=== PATIENT | female | born 1960 | race Caucasian/White ===

== ENCOUNTER 2016-09-14 16:59 | Emergency (ER) | payer MEDICAID ==
[2016-09-14 17:29] VITALS: BP 144/76
[2016-09-14] MEDS ORDERED: Sodium Chloride 0.9% 2,000 ML IV ONE (17:44)
[2016-09-14] MEDS ORDERED: Sodium Chloride 0.9% 10 ML Syringe FLUSH PRN (17:44)
[2016-09-14] MEDS ORDERED: Ketorolac 30 MG/ML SDV IVPUSH ONE (17:45)
--- NOTE | 2016-09-14 17:49 | EDM.PDOC ---
ED HPI GENERAL MEDICAL PROBLEM - General Chief Complaint: General Stated Complaint: NEEDS FLUIDS? Time Seen by Provider: 09/14/16 17:30 Source of Information: Reports: Patient History Limitations: Reports: No Limitations - History of Present Illness INITIAL COMMENTS - FREE TEXT/NARRATIVE: Johanna is a 56 year old female who presents to the ED today with c/o "feeling dehydrated". 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 Patient does have recent hx of tick borne illness, finished doxycycline at the end of June, had abnormal LFT's after that which have since normalized. She endorses a mild frontal headache, she denies any fever/chills/ vomiting/diarrhea. She denies any visual changes or unilateral weakness. 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 GI Surgical History: Reports: Hernia, Inguinal Female Surgical History: Reports: Tubal Ligation Social & Family History - Tobacco Use Smoking Status *Q: Heavy Tobacco Smoker Years of Tobacco use: 30 Packs/Tins Daily: 0.5 Used Tobacco, but Quit: No Second Hand Smoke Exposure: No - Caffeine Use Caffeine Use: Reports: Soda - Alcohol Use Days Per Week of Alcohol Use: 1 Number of Drinks Per Day: 3 Total Drinks Per Week: 3 - Recreational Drug Use Recreational Drug Use: No ED ROS GENERAL - Review of Systems Review Of Systems: ROS reveals no pertinent complaints other than HPI. ED EXAM, GENERAL - Physical Exam Exam: See Below Exam Limited By: No Limitations General Appearance: Alert, WD/WN, No Apparent Distress, Anxious Eye Exam: Bilateral Eye: EOMI, PERRL Throat/Mouth: Normal Inspection, Normal Oropharynx Head: Atraumatic Neck: Normal Inspection, Supple Respiratory/Chest: No Respiratory Distress, Lungs Clear Cardiovascular: Normal Peripheral Pulses, Regular Rate, Rhythm, No Murmur GI/Abdominal: Normal Bowel Sounds, Soft, Non-Tender Back Exam: Normal Inspection Extremities: Normal Inspection, Normal Range of Motion Neurological: Alert, Oriented, CN II-XII Intact Psychiatric: Normal Affect Skin Exam: Warm, Dry, Intact Lymphatic: No Adenopathy Course - Vital Signs Last Recorded V/S: Last Vital Signs Temp 35.7 C 09/14/16 17:29 Pulse 77 09/14/16 17:29 Resp 18 09/14/16 17:29 BP 144/76 H 09/14/16 17: Pulse Ox 97 09/14/16 17:29 Johanna is a 56 year old female who presents to the ED today requesting IV fluids. Please refer to HPI and focused exam. Patient on exam is symptomatically orthostatic, she is not tachycardic on arrival. PIV established and patient given 2 liters of NS. Patient was given Toradol for her headache with resolution. Blood work evaluated including CBC and CMP, CBC returns unremarkable. CMP returns with a mildly low sodium of 138 and a potassium of 3.4. BUN is elevated at 26. Creatinine returns at 1.4 with a GFR of 39 consistent with dehydration and likely pre-renal. I discussed findings with patient who is feeling better. I encouraged ongoing oral hydration at home. I would like her to follow up with her primary care provider this next week to have her creatinine rechecked. Patient is agreeable to plan of care. Reasons to return to the ED were discussed in detail. Patient was discharged in stable condition. - Orders/Labs/Meds Orders: Active Orders 24 hr Category Date Time Status Peripheral IV Care [RC] . DIRECTED Care 09/14/16 17:44 Active Sodium Chloride 0.9% [Normal Saline] 2,000 ml Med 09/14/16 17:44 Active IV .BOLUS Sodium Chloride 0.9% [Saline Flush] Med 09/14/16 17:44 Active 10 ml FLUSH ASDIRECTED PRN Peripheral IV Insertion Adult [OM.PC] Routine Oth 09/14/16 17:44 Ordered Medication Orders Sodium Chloride (Normal Saline) 2,000 mls @ 999 mls/hr IV .BOLUS ONE Stop: 09/14/16 19:44 Last Admin: 09/14/16 17:55 Dose: 999 mls/hr Sodium Chloride (Saline Flush) 10 ml FLUSH ASDIRECTED PRN PRN Reason: Keep Vein Open Last Admin: 09/14/16 17:55 Dose: 10 ml Labs: Laboratory Tests 09/14/16 09/14/16 Range/Units 17:55 17:55 WBC 6.5 (4.5-11.0) K/uL RBC 4.27 (3.30-5.50) M/uL Hgb 12.8 (12.0-15.0) g/dL Hct 37.9 (36.0-48.0) % MCV 89 (80-98) fL MCH 30 (27-31) pg MCHC 34 (32-36) % Plt Count 284 (150-400) K/uL Neut % (Auto) 47 (36-66) % Lymph % (Auto) 40 (24-44) % [place] % (Auto) 9 H (2-6) % Eos % (Auto) 3 (2-4) % Baso % (Auto) 2 H (0-1) % Sodium 138 L (140-148) mmol/L Potassium 3.4 L (3.6-5.2) mmol/L Chloride 103 (100-108) mmol/L Carbon Dioxide 25 (21-32) mmol/L Anion Gap 13.4 (5.0-14.0) mmol/L BUN 26 H (7-18) mg/dL Creatinine 1.4 H (0.6-1.0) mg/dL Est Cr Clr Drug Dosing 43.63 mL/min Estimated GFR (MDRD) 39 L (>60) Glucose 94 (74-106) mg/dL Calcium 8.8 (8.5-10.1) mg/dL Total Bilirubin 0.3 (0.2-1.0) mg/dL AST 22 (15-37) U/L ALT 29 (12-78) U/L Alkaline Phosphatase 89 (46-116) U/L Total Protein 7.3 (6.4-8.2) g/dL Albumin 3.5 (3.4-5.0) g/dL Globulin 3.8 H (2.3-3.5) g/dL Albumin/Globulin Ratio 0.9 L (1.2-2.2) Meds: Medications Generic Name Dose Route Start Last Admin Trade Name Suma PRN Reason Stop Dose Admin Sodium Chloride 2,000 mls @ 999 mls/hr 09/14/16 17:44 09/14/16 17:55 Normal Saline IV 09/14/16 19:44 999 mls/hr .BOLUS ONE Administration Sodium Chloride 10 ml 09/14/16 17:44 09/14/16 17:55 Saline Flush FLUSH 10 ml ASDIRECTED PRN Administration Keep Vein Open Discontinued Medications Generic Name Dose Route Start Last Admin Trade Name Suma PRN Reason Stop Dose Admin Ketorolac Tromethamine 30 mg 09/14/16 17:45 09/14/16 17:57 Toradol IVPUSH 09/14/16 17:46 30 mg ONETIME ONE Administration Departure - Departure Time of Disposition: 19:45 Disposition: Home, Self-Care 01 Condition: Good Clinical Impression: Dehydration, mild - Discharge Information Instructions: Dehydration, Adult, Elil-[id number]-Ckwd Forms: ED Department Discharge Additional Instructions: Johanna, Make sure you drink at least 64 ounces of water a day. I would like you to follow up in clinic this next week to have your kidney function (creatinine rechecked). If you have any worsening symptoms please return to the ED. - My Orders Last 24 Hours: My Active Orders 09/14/16 17:44 Peripheral IV Care [RC] . DIRECTED Sodium Chloride 0.9% [Normal Saline] 2,000 ml IV .BOLUS Sodium Chloride 0.9% [Saline Flush] 10 ml FLUSH ASDIRECTED PRN Peripheral IV Insertion Adult [OM.PC] Routine - Assessment/Plan Last 24 Hours: My Active Orders 09/14/16 17:44 Peripheral IV Care [RC] . DIRECTED Sodium Chloride 0.9% [Normal Saline] 2,000 ml IV .BOLUS Sodium Chloride 0.9% [Saline Flush] 10 ml FLUSH ASDIRECTED PRN Peripheral IV Insertion Adult [OM.PC] Routine
== END 2016-09-14 20:40 | disposition home or self-care (01) ==
LOC: JP.ED 16:59
DX: E86.0 Dehydration (principal); I10 Essential (primary) hypertension; F17.210 Nicotine dependence, cigarettes, uncomplicated; Z98.51 Tubal ligation status; Z98.890 Other specified postprocedural states; Z79.899 Other long term (current) drug therapy
CPT/HCPCS: 36415; 80053; 85025; 96361; 96374; 99284; J1885; J7040; J7050

== ENCOUNTER 2018-12-29 12:04 | Emergency (ER) | payer MEDICAID ==
[2018-12-29 12:34] VITALS: BP 127/53; PULSE 57
--- NOTE | 2018-12-29 13:45 | EDM.PDOC ---
ED HPI GENERAL MEDICAL PROBLEM - General Chief Complaint: Chest Pain Stated Complaint: CHEST PAIN & SOB Time Seen by Provider: 12/29/18 13:05 Source of Information: Reports: Patient History Limitations: Reports: No Limitations - History of Present Illness INITIAL COMMENTS - FREE TEXT/NARRATIVE: 58-year-old with history of hypertension who presents with concerns of chest pain. She reports symptoms have been intermittently ongoing for about 2 weeks. She primarily notices a substernal burning chest pain at night she is lying in bed. This will occasionally keep her up at night persistently. She has noticed some daytime somnolent and lack of energy. She has no associated dyspnea. The chest pain is not exertional. She has no fevers or chills. No cough. No pleuritic nature of the neck pain. No lower extremity swelling or pain. She tried her 's Prilosec pills few nights ago, this offered relief. 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 GI Surgical History: Reports: Hernia, Inguinal Female Surgical History: Reports: Tubal Ligation Social & Family History - Tobacco Use Smoking Status *Q: Former Smoker Used Tobacco, but Quit: Yes Month/Year Tobacco Last Used: 30 - Caffeine Use Caffeine Use: Reports: Soda - Alcohol Use Days Per Week of Alcohol Use: 2 Number of Drinks Per Day: 2 Total Drinks Per Week: 4 - Recreational Drug Use Recreational Drug Use: No ED ROS GENERAL - Review of Systems Review Of Systems: See Below Constitutional: Reports: Fatigue HEENT: Reports: No Symptoms Respiratory: Reports: No Symptoms Cardiovascular: Reports: Chest Pain Endocrine: Reports: No Symptoms GI/Abdominal: Reports: No Symptoms : Reports: No Symptoms Musculoskeletal: Reports: No Symptoms Skin: Reports: No Symptoms Neurological: Reports: No Symptoms Psychiatric: Reports: No Symptoms Hematologic/Lymphatic: Reports: No Symptoms Immunologic: Reports: No Symptoms ED EXAM, GENERAL - Physical Exam Exam: See Below Exam Limited By: No Limitations General Appearance: Alert, No Apparent Distress Nose: Normal Inspection Throat/Mouth: Normal Inspection Head: Atraumatic, Normocephalic Neck: Normal Inspection Respiratory/Chest: No Respiratory Distress, Lungs Clear Cardiovascular: Regular Rate, Rhythm GI/Abdominal: Normal Bowel Sounds, Soft, Non-Tender (Female) Exam: Normal External Exam Rectal (Female) Exam: Normal Exam Back Exam: Normal Inspection Extremities: Normal Inspection Neurological: Alert, Oriented Psychiatric: Normal Affect, Normal Mood Skin Exam: Warm, Dry Course - Vital Signs Last Recorded V/S: Last Vital Signs Temp 36.4 C 12/29/18 12:32 Pulse 57 L 12/29/18 12:32 Resp 13 12/29/18 12:32 BP 127/53 L 12/29/18 12:32 Pulse Ox - Orders/Labs/Meds Orders: Active Orders 24 hr Category Date Time Status EKG Documentation Completion [RC] ASDIRECTED Care 12/29/18 13:38 Active EKG 12 Lead [EK] Routine Ther 12/29/18 13:37 Ordered Labs: Laboratory Tests 12/29/18 12/29/18 Range/Units 13:37 13:37 WBC 8.5 (4.5-11.0) K/uL RBC 4.15 (3.30-5.50) M/uL Hgb 12.2 (12.0-15.0) g/dL Hct 38.4 (36.0-48.0) % MCV 93 (80-98) fL MCH 29 (27-31) pg MCHC 32 (32-36) % Plt Count 326 (150-400) K/uL Sodium 141 (140-148) mmol/L Potassium 3.9 (3.6-5.2) mmol/L Chloride 105 (100-108) mmol/L Carbon Dioxide 27 (21-32) mmol/L Anion Gap 8.7 (5.0-14.0) mmol/L BUN 26 H (7-18) mg/dL Creatinine 0.9 (0.6-1.0) mg/dL Est Cr Clr Drug Dosing 66.08 mL/min Estimated GFR (MDRD) > 60 (>60) Glucose 83 (74-106) mg/dL Calcium 9.1 (8.5-10.1) mg/dL Total Bilirubin 0.1 L D (0.2-1.0) mg/dL AST 15 (15-37) U/L ALT 18 (12-78) U/L Alkaline Phosphatase 87 (46-116) U/L Troponin I < 0.017 (0.000-0.056) ng/mL Total Protein 7.2 (6.4-8.2) g/dL Albumin 3.4 (3.4-5.0) g/dL Globulin 3.8 H (2.3-3.5) g/dL Albumin/Globulin Ratio 0.9 L (1.2-2.2) - Re-Assessments/Exams Free Text/Narrative Re-Assessment/Exam: 58-year-old presents with concerns of nonexertional chest pain. No associated dyspnea. Primarily she is laying in bed at night. Benign vitals and exam. EKG is normal sinus rhythm without ischemic changes. Her history is strongly consistent with GERD. We will check a single troponin and basic labs giving duration of symptoms we' ll defer any delta troponin testing. We'll plan to discharge with recommendation she start Prilosec if unremarkable. Currently asymptomatic 12/29/18 13:43 Departure - Departure Time of Disposition: 14:10 Disposition: Home, Self-Care 01 Clinical Impression: Chest pain Qualifiers: Chest pain type: unspecified Qualified Code(s): R07.9 - Chest pain, unspecified Instructions: Nonspecific Chest Pain Referrals: Adrian Cristobal MD [Primary Care Provider] - Forms: ED Department Discharge Additional Instructions: We believe your symptoms are likely due to acid reflux. Your cardiac workup was unremarkable. We suggest that you start taking a medication such as Prilosec as directed on the box. Please make a follow-up with your primary doctor. - My Orders Last 24 Hours: My Active Orders 12/29/18 13:37 EKG 12 Lead [EK] Routine 12/29/18 13:38 EKG Documentation Completion [RC] ASDIRECTED - Assessment/Plan Last 24 Hours: My Active Orders 12/29/18 13:37 EKG 12 Lead [EK] Routine 12/29/18 13:38 EKG Documentation Completion [RC] ASDIRECTED
== END 2018-12-29 14:27 | disposition home or self-care (01) ==
LOC: JP.ED 12:04
DX: R07.2 Precordial pain (principal)
CPT/HCPCS: 36415; 80053; 84484; 85027; 93005; 99284-25

== ENCOUNTER 2019-03-02 06:29 | Day surgery (SDC) | payer MEDICAID ==
[2019-03-02] MEDS ORDERED: Sodium Chloride 0.9% 1,000 ML IV SCH (07:00)
[2019-03-02] MEDS ORDERED: Propofol 200 MG/20 ML SDV ONE (07:13)
[2019-03-02] MEDS ORDERED: fentaNYL 100 MCG/2 ML SDV ONE (07:13)
[2019-03-02] MEDS ORDERED: Midazolam 1 MG/ML 2 ML SDV ONE (07:13)
[2019-03-02 09:16] VITALS: BP 98/63; PULSE 44
--- NOTE | 2019-03-02 13:12 | OR ---
DATE OF PROCEDURE: 03/02/2019 SURGEON: Kal Scott MD PROCEDURE: Colonoscopy. FINDINGS: 1. Diverticulosis, extensive, throughout the colon but most densely concentrated in a classic pattern in sigmoid colon. 2. Sigmoid colon polyp, approximately 5 mm, completely removed using cold biopsy forceps. COMPLICATIONS: None. KENO WRITER/RUNNER: None. ANESTHESIA: MAC. PREOPERATIVE DIAGNOSIS: Family history of colorectal cancer. POSTOPERATIVE DIAGNOSIS: Family history of colorectal cancer. RISKS: Risks, benefits, alternatives, and limitations including, but not limited to, infection, bleeding, and perforation were explained to the patient, who wished to proceed. PROCEDURE IN DETAIL: The patient was placed in left lateral decubitus position. Digital rectal exam was performed without abnormality. The scope was introduced and advanced atraumatically to the ileocecal valve. The scope was brought back through the ascending, transverse, descending colon, and retroflexed. The diverticulosis would be described as throughout the entire colon, mostly concentrated in the sigmoid colon without evidence of diverticulitis or bleeding. The removed polyp was either a small polyp or a forming tic. No abnormalities on retroflexion. The patient tolerated well. Kal Scott MD /[id number]
== END 2019-03-02 09:18 | disposition home or self-care (01) ==
LOC: JP.SDS 06:29
PROVIDERS: ATTEND Surgery
DX: Z12.11 Encounter for screening for malignant neoplasm of colon (principal); K63.5 Polyp of colon; K57.30 Diverticulosis of large intestine without perforation or abscess without bleeding; I10 Essential (primary) hypertension; E78.5 Hyperlipidemia, unspecified; K21.9 Gastro-esophageal reflux disease without esophagitis; F17.200 Nicotine dependence, unspecified, uncomplicated; Z86.010 Personal history of colon polyps; Z80.0 Family history of malignant neoplasm of digestive organs
CPT/HCPCS: 45380; J2250; J2704; J3010; J7030; 88305